=== PATIENT | male | born 1950 | race Caucasian/White ===

== ENCOUNTER → 2018-05-25 14:05 | Outpatient (CLI) | payer MEDICARE, MEDICAID, SELFPAY ==
--- NOTE | 2018-05-25 | IMM_PTH ---
PATIENT: CHAPINCITO IQBAL LOC: [facility] U#:[id number] AGE/SX: 74/M ROOM: RE05/25/[address]: Dr. Jose Torres MD : 1950 BED: DIS: SPEC #: [id number] RECD: 05/27/18 13:49 STATUS: JEAN REPatti #: [id number] LAURENT: 05/25/18 00:[address]: Jose Torres DEPT: IMMUNOHISTOCHEMISTRY RECD BY: Arminda Robert ENTERED: 05/27/18 13:53 SP TYPE: IMMUNO OTHR DR: Dr. Ravi Aguirre MD Tissues: Parotid gland, NOS Procedures: CK8 (initial) CK5-6 (add) CK7 (add) MACRO (add) Vimentin (add) PHYSICIAN & INSTITUTION [place] [phone] SPECIMEN INFORMATION: Tissue Source: Left parotid gland Clinical Info: D11.0, Z85.828 Specimen Number: [id number] CPT code: 73610, 06704 x4 METHODOLOGY: Deparaffinized sections of prefer/formalin-fixed tissue or PAP/DQ stained slides are incubated with monoclonal/polyclonal antibodies/oligonucleotide probes. Localization is made via biotin free immunoperoxidase method. Appropriate controls are performed and reacted as expected. Results on target cell population are indicated in the following table: RESULTS: ANTIBODY / CLONE RESULT CK8 ([id number]) positive CK7 (OV-TL12/30) negative Vimentin (V9) positive Macro (HAM-56) negative CK5-6 (D5 & 1684) positive These tests were developed and their performance characteristics determined by [facility]. They may not have been cleared or approved by the U.S. Food and Drug Administration. The FDA has determined that such clearance or approval is not necessary. INTERPRETATION: Left parotid gland, FNA: Consistent with benign mixed salivary gland tumor. AM:yani 05/28/18 Comment: Excision is recommended for definitive classification. Case has been reviewed in consultation with Dr. Mix who concurs with the above diagnosis. IDC:OLIVIER
--- NOTE | 2018-05-25 14:55 | FLU_PTH ---
PATIENT: CHAPINCITO IQBAL LOC: [facility] U#:[id number] AGE/SX: 74/M ROOM: RE05/25/[address]: Dr. Jose Torres MD : 1950 BED: DIS: SPEC #: [id number] RECD: 05/25/18 19:09 STATUS: JEAN LISA #: [id number] LAURENT: 05/25/18 14:[address]: Jose Torres DEPT: CYTOLOGY RECD BY: Javier Lowery ENTERED: 05/26/18 09:39 SP TYPE: Fluid OTHR DR: Dr. Ravi Aguirre MD Tissues: Parotid gland, NOS Procedures: Pap Stain (control) Special Stain Group II Surgery Specimen Level IV Cell Block Cytospin Fluid HEADER OPERATION: Not noted PRE-OP DIAGNOSIS: D11.0, Z85.828 TISSUE SUBMITTED: Left parotid gland fluid for cytology DIAGNOSIS CYTOLOGY Left parotid gland, fine needle aspiration (cytospin and cell block): Consistent with benign mixed tumor of salivary gland. AM:yani 05/27/18 COMMENT Spindle epithelial cells associated with stromal tissue is noted. The differential diagnosis includes an epithelial lesion with spindle cell morphology and benign mixed tumor of salivary gland. Excision of lesion is recommended for definite classification. Immunohistochemistry ([id number]) supports the above diagnosis. Case has been reviewed in consultation with Dr. Mix who concurs with the above diagnosis. IDC:SJ CYTOLOGY STUDY Slides are reviewed. CYTOLOGY GROSS Received is 25 ml of slightly pink cloudy fluid labeled with the patient's name and and designated per the requisition as left parotid gland. Submitted for cytology preparation including cell block. / 05/26/18 TC:? CPT: 00604, 95360
== END ==
PROVIDERS: Visit Provider Otolaryngology
DX: D11.0 Benign neoplasm of parotid gland (principal); Z85.828 Personal history of other malignant neoplasm of skin
CPT/HCPCS: 88108; 88305; 88313; 88341; 88342

== ENCOUNTER 2018-06-19 16:39 | Observation (INO) | payer MEDICARE, MEDICAID, SELFPAY ==
[2018-06-19] VITALS (13 sets, daily range): BP systolic 112–184; BP diastolic 64–99; PULSE 56–107; RESP 14–18; TEMP 36.3–36.9; O2SAT 88–100; BMI 26.8
[2018-06-19 12:17] LABS: Hematocrit 40.8 % (40-54); Hemoglobin 13.9 g/dl (13.0-16.5); Mean Corp Hgb Conc 34.1 g/gl (32-36); Mean Corpuscular Hgb 30.7 pg (27.0-32.0); Mean Corpuscular Volume 90.1 fL (80-94); Mean Platelet Vol. 9.3 fl (6.2-12.0); Platelet Count 194 K/mm3 (150-450); RBC Distribution Width CV 13.7 % (11.6-14.6); RBC Distribution Width SD 45.1 fl (35.1-43.9); Red Blood Count 4.53 M/mm3 (4.6-6.2); Scan Indicated on CBC? Y/N NO; White Blood Count 8.2 K/mm3 (4.4-11.0)
[2018-06-19 12:33] LABS: Anion Gap 7 (5-15); BUN 20 mg/dL (7-18); Chloride 108 mmol/L (98-107); Creatinine, Serum 1.33 mg/dL (0.70-1.30); EST Glomerular Filtration Rate 57 mL/min (>60); Est Glom Filt Rate - Afr Amer 69 mL/min (>60); Estimated Creatinine Clearance 60.08 ml/min; Glucose 104 mg/dL (74-106); Potassium 4.5 mmol/L (3.5-5.1); Sodium Level 141 mmol/L (136-145)
--- NOTE | 2018-06-19 15:46 | PAR_PTH ---
PATIENT: CHAPINCITO IQBAL LOC: [facility] U#:[id number] AGE/SX: 67/M ROOM: MS306 RE06/19/[address]: Dr. Jose Torres MD : 1950 BED: 1 DIS: 06/20/2018 SPEC #: [id number] RECD: 06/19/18 15:51 STATUS: JEAN REQ #: [id number] LAURENT: 06/19/18 15:[address]: Jose Torres DEPT: SURGICAL PATHOLOGY RECD BY: Bj Tyson ENTERED: 06/22/18 04:51 SP TYPE: PAROTID OTHR DR: Dr. Ravi Aguirre MD Tissues: Parotid gland, NOS Procedures: Frozen Section (charge) Frozen Section Add'l ([facility]) Surgery Specimen Level V HEADER OPERATION: Parotidectomy, lateral lobe with facial nerve preservation PRE-OP DIAGNOSIS: Neoplasm of parotid gland TISSUE SUBMITTED: Left lateral parotid gland sent at 1547, double stitch ? posterior, single stitch ? superior; history of distant basal cell excision from this site FROZEN SECTION DIAGNOSIS Lateral lobe left parotid: Basal cell carcinoma. OLIVIER:yani 06/19/18 MICROSCOPIC DIAGNOSIS Lateral lobe left parotid, parotidectomy: Basal cell carcinoma, completely excised. Salivary gland tissue, no pathologic diagnosis. Intraparotid and periparotid lymph node tissue with reactive changes, negative for metastatic carcinoma. See comment. OLIVIER:yani 06/22/18 COMMENT Skeletal muscle tissue is present in the specimen and not involved by the tumor. Please make reference to previous specimen ([id number]) left parotid gland, fine needle aspiration with diagnosis of consistent with benign mixed tumor of salivary gland. Case has been reviewed in consultation with Dr. Ardon who concurs with the above diagnosis. IDC:AM MICROSCOPIC DESCRIPTION Slides are reviewed. GROSS DESCRIPTION Received fresh for frozen section diagnosis labeled with the patient's name is a specimen designated lateral lobe left parotid. The specimen consists of a piece of skin with underlying tissue and glandular tissue weighing 24.5 gm. The overlying skin ellipse measures 8 x 2.5 cm. The underlying tissue including glandular tissue measures 8 x 4 x 3 cm. The skin surface shows a healed scar. The specimen is inked as follows: superior margin ? blue, inferior margin ? green, anterior margin ? yellow, posterior margin ? black. Serial sections show a rob, indurated nodule underneath the skin measuring 1 x 1 x 1 cm. No obvious mass is noted in the salivary gland tissue. A section of the nodule underneath the skin including anterior, posterior and deep margins is submitted for frozen section diagnosis in two cassettes. Tunnel Elastic Operator Zigzag sections are submitted in 12 cassettes as follows: 1 & 2 ? full thickness frozen section nodule including anterior, posterior and deep margins, 3 ? inferior margin, 4 ? superior margin, 5-8 ? entire nodule, 9 - sales representative rural [employer] section of the skin adjacent to the nodule, 10-12 - sales representative rural [employer] sections of salivary gland tissue with sales representative rural [employer] section of the glandular tissue. / OLIVIER:yani 06/19/18 TC:0 CPT: 30523, 58047, 53185
--- NOTE | 2018-06-19 16:29 | PCM.OPRPT ---
Problem List (1) Malignant neoplasm of major salivary glands Status: Acute Report of Operation Date of Procedure: 06/19/18 Pre-Operative Diagnosis: Benign lesion of parotid gland Post-Operative Diagnosis: Malignant basal cell carcinoma involving left parotid gland Surgery/Procedure Performed:: Excision of latearl lobe of left parotid gland with preservation of the facial nerve, nerve monitoring Description of Surgical Findings:: Tyler is a 67-year-old male who presents for evaluation of a firm mass of the left parotid underlying the previous excision of a basal cell carcinoma approximately 10 years prior. 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 Given the finding of a mass in his history however excision for definitive evaluation as well as treatment of the mass lesion was advised and he was eager to proceed. The risks, alternatives, potential benefits, and complications were discussed at length and any questions answered to the patient and/or caregiver's satisfaction. Witnessed informed consent was obtained in the office, and the patient and/or caregiver was agreeable to proceed. Procedure went as follows: The patient was identified in the preoperative holding in the left parotid lesion site marked in the preoperative holding in accordance with the patient's physical skin exam, office notes, and consent. The patient was then taught to the operating room where he is placed under general anesthesia and intubated. When appropriate anesthesia was obtained, the facial nerve monitoring electrodes then placed in accordance and [employer] directions over the left side of the face. The planned incision was then marked with a marking pen and injected with 1% lidocaine with 100,000 epinephrine for a total of 8 cc. After allowing for vasoconstriction, a standard parotidectomy incision was then made a 15 blade scalpel through the skin and subcutaneous tissues. The subcutaneous was then tissue was then dissected and the greater auricular nerve identified with the branches along the posterior aspect of the incisional flap preserved. Dissection was then carried down along the sternocleidomastoid freeing the parotid attachments to this muscle. Dissection was then carried out along the tragal cartilage and the main trunk of the facial nerve identified. Dissection was then carried out along the facial nerve branches working inferiorly to superiorly and freeing the mass from the parotid gland sacrificing a cuff of normal-appearing parotid tissue. The overlying skin scar from previous excision of his basal cell carcinoma and the palpable mass within the gland and its area of fixation to the overlying skin was then sharply resected. This was then sent for surgical specimen. Operative stimulation of the facial nerve branches confirmed preservation of function. THe skin was then widely undermined to reduce tension along the incision line. The wound bed was then copiously irrigated with saline solution and a #7 flat KJ drain placed and brought out through separate stab incision in the skin. The wound was then closed deeply with interrupted 3-0 Vicryl sutures followed by running 4-0 Prolene to the skin. Interrupted 5-0 Monocryl was use to close the skin anterior to the tragal incision. Bacitracin and ointment was then applied and the patient returned to anesthesia where he was revived and extubated without complication having tolerated the procedure well. Anesthesiologist: Jose Meeks Special Medications: none Specimen's removed: Basal cell carcinoma and lateral lobe of left parotid gland Drains: #7 flat KJ Estimated Blood Loss (mL): 25 mL Fluids Replaced: 2000 mL Grafts/Implants Used: none - Complications none - Admit VTE Documentation VTE Present on Admission: No VTE Mechan Device Prophylaxis: SCD's VTE Pharm Prophylaxis ordered?: No
[2018-06-19] MEDS: Bacitracin 500 UNITS/GM PACKET (16:30)
--- NOTE | 2018-06-19 16:38 | PCM.DC ---
- Discharge Diagnoses Current Active Problems: Current Active and Chronic Problems Malignant neoplasm of major salivary glands (Acute) You will use the following diet at home:: No restrictions Discharge Activity: Return to Normal Activity, May not drive while taking narcotic pain medications. Call your doctor if your incision/area has: Sudden Increased Bleeding, Increased Pain/ Swelling, Increased Redness Call your doctor if you observe: Fever of 101 or Higher, Uncontrolled pain Allergies/Adverse Reactions: Allergies No Known Allergies Allergy (Verified 06/12/18 09:06) PT WAS TESTED FOR AN UNKNOW ALLERGY THREE YRS AGO. Medications to take at Discharge Aspirin [Aspirin, Baby] 81 mg PO DAILY@0800 06/12/18 Glucosamine HCl 1,500 mg PO QODAY 06/12/18 Isosorbide Mononitrate [Imdur] 30 mg PO DAILY 06/12/18 Loratadine [Claritin] 10 mg PO DAILY 06/12/18 Metoprolol Succinate [Toprol Xl] 25 mg PO DAILY 06/12/18 Nitroglycerin 0.3 mg SL PRN PRN 06/12/18 Rabeprazole Sodium [Aciphex] 20 mg PO DAILY 06/12/18 Rosuvastatin Calcium [Crestor] 40 mg PO QHS 06/12/18 mg Trisilicate/Alh/Nahco3/Aa [Gaviscon 80-14.2 mg Tab Chew] 1 tab PO DAILY 06/12/18 Primary Care Physician: Ravi Aguirre MD [Primary Care Provider] - Test Results: Test results from this visit will be discussed in further detail at your follow-up appointment, if applicable. Please Follow Up With: Jose Torres MD When: 10 days Proposed Discharge Date: 06/20/18
[2018-06-19] MEDS: Enalaprilat 1.25 MG/ML Vial 0.625 MG IV (17:56)
[2018-06-19] MEDS: Ibuprofen 400 MG Tablet PO ×2 (19:05→23:35)
[2018-06-20] MEDS: Ibuprofen 400 MG Tablet PO ×2 (05:25→11:07)
[2018-06-20 05:36] VITALS: BP 135/69; PULSE 64; RESP 18; TEMP 36.7; O2SAT 95
[2018-06-20] MEDS: Aspirin 81 MG TAB.CHEW PO (09:29)
[2018-06-20] MEDS: Loratadine 10 MG Tablet PO (09:29)
[2018-06-20 09:30] VITALS: PULSE 62
[2018-06-20] MEDS: Isosorbide Mononitrate 30 MG Tablet PO (09:30)
[2018-06-20] MEDS: Metoprolol(XL)Succ 25 MG Tablet PO (09:30)
--- NOTE | 2018-06-20 09:47 | PCM.PN.SRG ---
Patient Problems: Active and Suspected Problems Malignant neoplasm of major salivary glands (Acute) Subjective: Feeling well, no pain or facial weakness. Objective: Well appearing, facial incision intact without swelling or redness. Drain output 10 mL last shift. - Physical Exam General: Alert, Oriented x3, Cooperative, No apparent distress HEENT: Atraumatic, PERRLA, EOMI, Normocephalic Oral: Moist Mucosa Neck: Supple Cardiovascular: Regular rate, Regular Rhythm Psych/Mental Status: Alert and oriented to time, place, person, mood and affect Vital Signs Temp Pulse Resp BP Pulse Ox 98.0 F 62 18 135/69 H 95 06/20/18 05:36 06/20/18 09:30 06/20/18 05:36 06/20/18 05:36 06/20/18 05:36 Oxygen Flow Rate (L/min) 2 Oxygen Delivery Method Room Air Weight: 92.1 kg Body Mass Index (BMI) 26.8 Intake and Output for Last 24 Hours 06/18/18 06/19/18 06/20/18 23:59 23:59 23:59 Intake Total 3543 / 3543 675 / 675 Output Total 160 / 160 535 / 535 Balance 3383 / 3383 140 / 140 Laboratory Tests Past 24 Hrs 06/19/18 06/19/18 12:00 12:00 WBC 8.2 RBC 4.53 L Hgb 13.9 Hct 40.8 MCV 90.1 MCH 30.7 MCHC 34.1 RDW 13.7 RDW Differential 45.1 H Plt Count 194 MPV 9.3 Sodium 141 Potassium 4.5 Chloride 108 H Carbon Dioxide 26.0 Anion Gap 7 BUN 20 H Creatinine 1.33 H Estim Creat Clear Calc 60.08 Est GFR (MDRD) Af Amer 69 Est GFR (MDRD) Non-Af 57 L BUN/Creatinine Ratio 15.0 Glucose 104 Calcium 9.0 Medical Necessity - Tobacco Use Smoking Status: Current every day smoker Assessment/Plan All Active Problems Malignant neoplasm of major salivary glands (Acute) Dong well s/p left parotidectomy. Drain removed at bedside with discharge today. Follow-up next week for suture removal.
[2018-06-20 11:15] VITALS: BP 119/56; PULSE 65; RESP 18; TEMP 36.8; O2SAT 94
== END 2018-06-20 11:20 | disposition home or self-care (01) ==
LOC: MS3 06-20 04:37 → SDC 06-22 06:56
PROVIDERS: Anesthesiology; Admitting Provider Otolaryngology; Visit Provider Otolaryngology
PROC: (CPT 42410; principal; 2018-06-19 13:05)
DX: C07 Malignant neoplasm of parotid gland (principal); K21.9 Gastro-esophageal reflux disease without esophagitis; Z85.828 Personal history of other malignant neoplasm of skin; Z79.899 Other long term (current) drug therapy; Z79.82 Long term (current) use of aspirin; I10 Essential (primary) hypertension; I49.1 Atrial premature depolarization; F17.200 Nicotine dependence, unspecified, uncomplicated; J44.9 Chronic obstructive pulmonary disease, unspecified; E78.5 Hyperlipidemia, unspecified
CPT/HCPCS: 42415; 80048; 85027; 88307; 88331; 88332; 99218; J7120; G0378; G0379; J2405; J3490

== ENCOUNTER → 2018-11-23 13:30 | Outpatient (CLI) | payer MEDICARE, MEDICAID, SELFPAY ==
[2018-06-19 12:13] VITALS: BMI 26.8
--- NOTE | 2018-11-23 | IMM_PTH ---
PATIENT: CHAPINCITO IQBAL LOC: [facility] U#:[id number] AGE/SX: 74/M ROOM: RE11/23/[address]: Dr. Jose Torres MD : 1950 BED: DIS: SPEC #: [id number] RECD: 11/25/18 13:08 STATUS: JEAN LISA #: [id number] LAURENT: 11/23/18 00:[address]: Jose Torres DEPT: IMMUNOHISTOCHEMISTRY RECD BY: Arminda Robert ENTERED: 11/25/18 13:09 SP TYPE: IMMUNO OTHR DR: Dr. Ravi Aguirre MD Tissues: C - Skin of chest Procedures: [place]-1 (initial) SMA (add) DESMIN (add) Vimentin (add) S-100 (add) PHYSICIAN & INSTITUTION [place] [phone] SPECIMEN INFORMATION: Tissue Source: C - Upper chest Clinical Info: Benign neoplasm of skin, BCCA history Specimen Number: [id number] CPT code: 13429, 96999 x4 METHODOLOGY: Deparaffinized sections of prefer/formalin-fixed tissue or PAP/DQ stained slides are incubated with monoclonal/polyclonal antibodies/oligonucleotide probes. Localization is made via biotin free immunoperoxidase method. Appropriate controls are performed and reacted as expected. Results on target cell population are indicated in the following table: RESULTS: ANTIBODY / CLONE RESULT Block C S-100 (4C4.9) positive MART-1 (A-103) negative Vimentin (V9) positive Actin (1A4) negative Desmin (CE-R-11) negative These tests were developed and their performance characteristics determined by [facility]. They may not have been cleared or approved by the U.S. Food and Drug Administration. The FDA has determined that such clearance or approval is not necessary. INTERPRETATION: C. Upper chest lesion, excisional biopsy: Consistent with neurofibroma. SJ:yani 11/25/18
--- NOTE | 2018-11-23 13:30 | LES_PTH ---
PATIENT: CHAPINCITO IQBAL LOC: [facility] U#:[id number] AGE/SX: 74/M ROOM: RE11/23/[address]: Dr. Jose Torres MD : 1950 BED: DIS: SPEC #: [id number] RECD: 11/23/18 18:00 STATUS: JEAN LISA #: [id number] LAURENT: 11/23/18 13:[address]: Jose Torres DEPT: SURGICAL PATHOLOGY RECD BY: Jeremiah Purdy ENTERED: 11/24/18 10:59 SP TYPE: Lesion OTHR DR: Dr. Ravi Aguirre MD Tissues: A - Skin of neck, NOS B - Skin of neck, NOS C - Skin of chest Procedures: Surgery Specimen Level IV HEADER OPERATION: Excision of lesion PRE-OP DIAGNOSIS: Benign neoplasm of skin D23.4; history of BCCA TISSUE SUBMITTED: A - Front lower neck, B - Left neck, C - Upper chest MICROSCOPIC DIAGNOSIS A. Frontal lower neck lesion, excisional biopsy: Inflamed benign verrucous keratosis. Negative for malignancy. B. Left neck lesion, biopsy: Benign verrucous keratosis. Solar elastosis. Negative for malignancy. C. Upper chest lesion, excisional biopsy: Neurofibroma. See comment. SJ:yani 11/25/18 COMMENT C. Immunohistochemistry ([id number]) supports the above diagnosis. Please make reference to previous specimens ([id number]), left parotid gland, fine needle aspiration with diagnosis of consistent with benign mixed tumor of salivary gland and (K12-4389) lateral lobe left parotid, parotidectomy with diagnosis of basal cell carcinoma, completely excised. MICROSCOPIC DESCRIPTION Slides are reviewed. GROSS DESCRIPTION A - Received in fixative is one container labeled with the patient's name and designated front lower neck. The specimen consists of a punch biopsy of rob-white skin measuring 0.5 cm in diameter and 0.5 cm in length. The specimen is inked and submitted entirely in one cassette. It will be bisected at the time of embedding. B - Received in fixative is one container labeled with the patient's name and designated left neck. The specimen consists of a piece of rob-white skin measuring 0.2 x 0.2 x 0.1 cm. The entire specimen is submitted in one cassette. C - Received in fixative is one container labeled with the patient's name and designated upper check. The specimen consists of a piece of rob-white skin measuring 1 x 0.7 cm and up to 0.4 cm in thickness. The specimen is inked, serially sectioned and submitted entirely in one cassette. / OLIVIER:yani 11/24/18 TC:1 CPT: 49258 x3
== END ==
PROVIDERS: Referring Provider Otolaryngology; Visit Provider Otolaryngology
DX: D23.4 Other benign neoplasm of skin of scalp and neck (principal)
CPT/HCPCS: 88305; 88341; 88342

== ENCOUNTER → 2023-09-09 | Outpatient (CLI) | payer MEDICARE, MEDICAID, SELFPAY ==
--- NOTE | 2023-09-10 08:00 | PFT ---
INTRODUCTION: The patient is a 72-year-old male who presents for pulmonary function studies secondary to a diagnosis of dyspnea. Respiratory therapy reported good patient effort. Bronchodilators were used during testing. INTERPRETATION: Forced expiration spirometry demonstrates the presence of a mild large airways obstructive ventilatory defect. There was no significant response to aerosolized bronchodilators. Spirograms are of good quality but do not plateau indicating slow emptying of the lungs. Body plethysmography was performed and revealed an elevated RV to 163% of predicted, indicative of underlying air trapping. Diffusing capacity by single breath CO was reduced to 47% of predicted. IMPRESSION: Irreversible mild large airways obstructive ventilatory defect with associated air trapping and disproportionate reduction in diffusion capacity.
== END | disposition home or self-care (01) ==
LOC: PSN 12:23
PROVIDERS: PCP Internal Medicine Infectious Disease; Referring Provider Internal Medicine Critical Care Medicine; Visit Provider Internal Medicine Critical Care Medicine
DX: R06.00 Dyspnea, unspecified (principal)
CPT/HCPCS: 94060; 94726; 94729

== ENCOUNTER → 2023-09-11 | Outpatient (CLI) | payer MEDICARE, MEDICAID, SELFPAY ==
[2023-09-11 11:15] VITALS: PULSE 102; PULSE 51; PULSE 68; PULSE 91; PULSE 98; PULSE 99; O2SAT 93; O2SAT 94; O2SAT 95; O2SAT 97
--- NOTE | 2023-09-12 10:32 | PCM.PSN.6M ---
PSN 6 Minute Walk Test 6 Minute Walk Test 6 Minute Walk Test: 6 Minute Walk Test PSN:6-Minute Walk Test Start: 09/11/23 11:32 Freq: Status: Active Protocol: RESP.6MINW Document 09/11/23 11:15 EW (Rec: 09/11/23 11:37 EW Desktop) 6 Minute Walk Test Date Performed 09/11/23 Time Performed 11:15 Height 6 ft 1 in Weight: 200 lb Weight in Pounds 200.[address]: Stevie Orozco Assistive device used: None Pre-test Oxygen Delivery Method Room Air Pulse Ox 97 Pulse Rate (60-100) 68 Dyspnea Mitchell Scale (0-10) 0 Exertion Mitchell Scale (6-20) 6 1st minute Oxygen Delivery Method Room Air Pulse Ox 95 Pulse Rate (60-100) 98 2nd minute Oxygen Delivery Method Room Air Pulse Ox 93 Pulse Rate (60-100) 102 H 3rd minute Oxygen Delivery Method Room Air Pulse Ox 94 Pulse Rate (60-100) 99 4th minute Oxygen Delivery Method Room Air Pulse Ox 94 Pulse Rate (60-100) 99 5th minute Oxygen Delivery Method Room Air Pulse Ox 95 Pulse Rate (60-100) 99 6th minute Oxygen Delivery Method Room Air Pulse Ox 95 Pulse Rate (60-100) 91 Post-test Oxygen Delivery Method Room Air Pulse Ox 97 Pulse Rate (60-100) 51 L Dyspnea Mitchell Scale (0-10) 0.5 Exertion Mitchell Scale (6-20) 8 Full Laps Walked 22 Partial Lap, Number of Tiles Walked 25 Total Distance Walked (ft) 1323 Interpretation Interpretation: The patient ambulated 1323 feet over the course of 6 minutes beginning on room air without assistive devices. Pretesting oxygen saturation was noted to be 97% on room air. With ambulation, the miguel a oxygen saturation was 93%. There was no significant exertional oxygen desaturation. Recommendations Recommendations: There is no indication for the use of supplemental oxygen at this time.
== END | disposition home or self-care (01) ==
PROVIDERS: PCP Internal Medicine Infectious Disease; Referring Provider Internal Medicine Critical Care Medicine; Visit Provider Internal Medicine Critical Care Medicine
DX: R06.00 Dyspnea, unspecified (principal)
CPT/HCPCS: 94618

== ENCOUNTER 2023-09-24 06:36 | Day surgery (SDC) | payer MEDICARE, MEDICAID, SELFPAY ==
--- NOTE | 2023-09-23 | EGD_PTH ---
PATIENT: CHAPINCITO IQBAL LOC: EN U#:[id number] AGE/SX: 72/M ROOM: RE09/24/[address]: Dr. Phil Goyal DO : 1950 BED: DIS: 09/24/2023 SPEC #: [id number] RECD: 09/24/23 11:41 STATUS: JEAN LISA #: [id number] LAURENT: 09/23/23 00:[address]: Phil Goyal DEPT: SURGICAL PATHOLOGY RECD BY: Daya Waller ENTERED: 09/24/23 11:41 SP TYPE: EGD BIOPSY BRENDA DR: Dr. Roxy Vanessa MD Tissues: Duodenum, NOS Procedures: Surgery Specimen Level IV HEADER OPERATION: EGD with biopsy PRE-OP DIAGNOSIS: Abdominal bloating, history duodenal ulcer TISSUE SUBMITTED: Duodenum biopsy MICROSCOPIC DIAGNOSIS Duodenum, biopsy: Suggestive of Zay's gland hyperplasia. AM:yani 09/25/2023 MICROSCOPIC DESCRIPTION Slides are reviewed. GROSS DESCRIPTION Received in fixative is one container labeled with the patient's name and designated duodenum biopsy. The specimen consists of multiple irregular fragments of light rob soft tissue that in aggregate measure 1.0 x 0.3 x 0.1 cm. The specimen is totally submitted in one cassette. / AM:yani 09/24/2023 TC:5 CPT: 38014
[2023-09-24] VITALS (7 sets, daily range): BP systolic 78–108; BP diastolic 44–93; PULSE 70–78; RESP 16–20; TEMP 36.8–37.2; O2SAT 94–97; BMI 26.7
[2023-09-24] MEDS: Lactated Ringers 1,000 ML 15 ML IV (07:07)
--- NOTE | 2023-09-24 07:46 | PCM.HP.BLA ---
History and Physical Date of Admission: 09/24/23 CHAPINCITO IQBAL, is a 72 M who presents to the office today for follow up. Prior workup:?EGD and colonoscopy [facility]?reporting duodenal ulcers ? Colonoscopy ?diverticulosis?Start protonix 40mg BID? *BGI established 11.16.21 for management of upper abdominal pain.?EGD and colonoscopy?not performed. No follow up? ROS Const Constitutional: No fatigue ENT ENT: Positive for difficulty swallowing Gastro GI: Positive for bloating, heartburn, difficulty swallowing and excessive flatus; No abdominal pain, belching, change in bowel habits, change in stool character, coffee ground emesis, constipation, cramping, diarrhea, feeling full early, incontinent of stools, Vomiting blood/hematemesis, Blood in stool, loose stools, Black,tarry stools, nausea/dyspepsia, pain with swallowing, vomiting or other Musc Musculoskeletal: Positive for joint pain, muscle cramps, stiffness and restless legs Skin Skin: No yellowing of the eye or itchy eyes Neuro Neurology: Positive for restless legs Psych Psychiatric: No anxiety and No depression Endo Endocrine: No fatigue Aller/Imm Allergy/Immunologic: No itchy eyes Kwame/Lymp Hematologic/Lymphatic: No easy bleeding or easy bruising Exam Const General: cooperative and comfortable Nutritional Appearance: average body habitus and well nourished [facility] Head: normal to inspection Ears: hearing grossly normal bilaterally Nose: external nose normal Face and sinus: normal facial exam Mouth: oral mucosae normal Throat: posterior oropharynx normal Eyes General: appearance normal, both eyes and all related structures Neck Neck: normal visual inspection Chest Chest palpation & inspection: normal inspection of the chest and normal palpation of entire chest wall Resp Effort & Inspection: normal respiratory effort Auscultation: Bilateral: Clear to Auscultation Cardio Palpation: normal PMI Rate: regular rate Rhythm: regular rhythm GI Inspection: normal to inspection Auscultation: normal bowel sounds Percussion: normal to percussion Palpation: no hepatosplenomegaly Skin General: no rashes or lesions noted Neuro General: patient alert Extrem General: normal to inspection Psych Affect: normal affect Quality Reporting Tobacco Screening ([facility] 138) Smoking Status: Current every day smoker Assessment and Plan Assessment and Plan (1) Abdominal bloating: Status: Acute Plan: We will perform an upper endoscopy to see if his abdominal pain and bloating is secondary to persistent duodenal ulcer, gastritis or atypical reflux disease. Also different diagnosis would be small bacterial overgrowth. We will have further evaluation after he undergoes upper endoscopy. At this time I will not stop his PPI therapy. (2) Diverticula of colon: Status: Acute Plan: Patient seems to be eating a very good diet. The only other thing I would recommend prior to him undergoing colonoscopy would be vitamin D, fiber supplements and a probiotic that would preferably prevent diverticulitis in the form of VSL #3 (3) History of duodenal ulcer: Status: Acute Plan: We will evaluate his upper GI tract to see if he still has a persistent duodenal ulcer will also check him for H. pylori. I have examined the patient and the H&P has been reviewed. There are no clinical changes since date of exam.
--- NOTE | 2023-09-24 08:02 | OP.EGD_ITS ---
Patient Name: Tyler Olivares Procedure Date: 09/24/2023 7:44 AM Date of : 1950 Age: 72 Procedure: Upper GI endoscopy Indications: Epigastric abdominal pain, Functional Dyspepsia, Failure to respond to medical treatment Providers: Phil Goyal DO Medicines: Monitored Anesthesia Care Patient Profile: This is a 72 year old male. Refer to note in patient chart for documentation of history and physical. Patient has symptoms of chronic abdominal cramping, chronic abdominal distention, chronic epigastric abdominal pain and chronic dyspepsia. Complications: No immediate complications. Procedure: Pre-Anesthesia Assessment: - Prior to the procedure, a History and Physical was performed, and patient medications and allergies were reviewed. The patient is competent. The risks and benefits of the procedure and the sedation options and risks were discussed with the patient. All questions were answered and informed consent was obtained. Patient identification and proposed procedure were verified by the physician in the pre-procedure area. Mental Status Examination: alert and oriented. Airway Examination: normal oropharyngeal airway and neck mobility. Respiratory Examination: clear to auscultation. CV Examination: normal. Prophylactic Antibiotics: The patient does not require prophylactic antibiotics. Prior Anticoagulants: The patient has taken no anticoagulant or antiplatelet agents. ASA Grade Assessment: II - A patient with mild systemic disease. After reviewing the risks and benefits, the patient was deemed in satisfactory condition to undergo the procedure. The anesthesia plan was to use monitored anesthesia care (MAC). Immediately prior to administration of medications, the patient was re-assessed for adequacy to receive sedatives. The heart rate, respiratory rate, oxygen saturations, blood pressure, adequacy of pulmonary ventilation, and response to care were monitored throughout the procedure. The physical status of the patient was re-assessed after the procedure. After obtaining informed consent, the endoscope was passed under direct vision. Throughout the procedure, the patient's blood pressure, pulse, and oxygen saturations were monitored continuously. The Endoscope was introduced through the mouth, and advanced to the second part of duodenum. The upper GI endoscopy was accomplished without difficulty. The patient tolerated the procedure well. Scope In: 7:52:07 AM Scope Out: 7:55:44 AM Total Procedure Duration Time 0 hours 3 minutes 37 seconds Findings: Abnormal motility was noted in the lower third of the esophagus. The cricopharyngeus was normal. There are extra peristaltic waves in the esophageal body. The distal esophagus/lower esophageal sphincter is spastic, but gives up passage to the endoscope. Secondary peristaltic waves are noted. A hiatal hernia was present. The exam of the stomach was otherwise normal. One non-bleeding linear duodenal ulcer with no stigmata of bleeding was found in the duodenal bulb. The lesion was 6 mm in largest dimension. Biopsies were taken with a cold forceps for histology. Verification of patient identification for the specimen was done. Estimated blood loss was minimal. Localized mild inflammation characterized by erosions and erythema was found in the duodenal bulb. Biopsies were taken with a cold forceps for histology. Verification of patient identification for the specimen was done. Estimated blood loss was minimal. Impression: - Abnormal esophageal motility, suspicious for achalasia. - Hiatal hernia. - Non-bleeding duodenal ulcer with no stigmata of bleeding. Biopsied. - Duodenitis. Biopsied. Recommendation: - Discharge patient to home. - Resume previous diet. - Continue present medications. - Await pathology results. Procedure Code(s): --- Professional --- 24542, Esophagogastroduodenoscopy, flexible, transoral; with biopsy, single or multiple CPT copyright 2021 [employer] [employer]. All rights reserved. The codes documented in this report are preliminary and upon lay out helper review may be revised to meet current compliance requirements. Phil Goyal DO 09/24/2023 8:02:04 AM This report has been signed electronically. Number of Addenda: 0 Note Initiated On: 09/24/2023 7:44 AM
--- NOTE | 2023-09-24 08:02 | OP.CCLET_ITS ---
09/24/2023 Roxy Vanessa [address] [id number] Re : Upper GI endoscopy procedure for Tyler Elise Dear Dr. Vanessa This procedure was performed on Sunday, September 24, 2023. My impressions and recommendations are as follows: Impressions : - Abnormal esophageal motility, suspicious for achalasia. - Hiatal hernia. - Non-bleeding duodenal ulcer with no stigmata of bleeding. Biopsied. - Duodenitis. Biopsied. Recommendations : - Discharge patient to home. - Resume previous diet. - Continue present medications. - Await pathology results. My findings are described in the full procedure note, which is enclosed. If I can be of further assistance, please feel free to contact me at . Sincerely, Phil Goyal, 09/24/2023 8:02:04 AM This report has been signed electronically.
== END 2023-09-24 08:53 | disposition home or self-care (01) ==
LOC: EN 06:37 → AC 06:38
PROVIDERS: PCP Internal Medicine Infectious Disease; Referring Provider Internal Medicine Infectious Disease; Visit Provider Internal Medicine Gastroenterology
PROC: 0DJ08ZZ Inspection of Upper Intestinal Tract, Via Natural or Artificial Opening Endoscopic (ICD-10-PCS; CPT 43235; principal; 2023-09-24 07:55)
DX: K26.9 Duodenal ulcer, unspecified as acute or chronic, without hemorrhage or perforation (principal); K44.9 Diaphragmatic hernia without obstruction or gangrene; K29.80 Duodenitis without bleeding; F17.200 Nicotine dependence, unspecified, uncomplicated; K57.30 Diverticulosis of large intestine without perforation or abscess without bleeding; Z87.19 Personal history of other diseases of the digestive system; Z79.899 Other long term (current) drug therapy; I10 Essential (primary) hypertension
CPT/HCPCS: 43239; 88305; J7120; J2405

== ENCOUNTER 2023-10-16 09:16 | Day surgery (SDC) | payer MEDICARE, MEDICAID, SELFPAY ==
[2023-10-16] MEDS: Lidocaine Jelly 2% 20 ML Syringe (URO-JET) 1 APPLIC (09:40)
[2023-10-16 09:48] VITALS: BP 143/59; PULSE 36; RESP 18; TEMP 36.6; O2SAT 97
== END 2023-10-16 23:59 | disposition home or self-care (01) ==
LOC: EN 09:18
PROVIDERS: PCP Internal Medicine Infectious Disease; Referring Provider Internal Medicine Infectious Disease; Visit Provider Internal Medicine Gastroenterology
PROC: F00ZJWZ Instrumental Swallowing and Oral Function Assessment using Swallowing Equipment (ICD-10-PCS; CPT 43235; principal; 2023-10-16 09:25)
DX: K22.2 Esophageal obstruction (principal)
CPT/HCPCS: 91010

== ENCOUNTER → 2024-03-31 | Outpatient (CLI) | payer MEDICARE, MEDICAID, SELFPAY | END | disposition home or self-care (01) | LOC: SL 12:30 | PROVIDERS: PCP Internal Medicine Infectious Disease; Referring Provider Nurse Practitioner Acute Care; Visit Provider Nurse Practitioner Acute Care | DX: R09.02 Hypoxemia (principal) | CPT/HCPCS: 94762 ==

== ENCOUNTER 2024-04-14 06:52 | Day surgery (SDC) | payer MEDICARE, MEDICAID, SELFPAY ==
[2024-04-14] VITALS (7 sets, daily range): BP systolic 82–129; BP diastolic 52–78; PULSE 56–72; RESP 14–18; TEMP 36.1–36.3; O2SAT 93–96; BMI 27.3
[2024-04-14] MEDS: Lactated Ringers 1,000 ML 15 ML IV (07:26)
--- NOTE | 2024-04-14 07:42 | EKG12_ITS ---
Test Reason : preop Blood Pressure : / mmHG Vent. Rate : 067 BPM Atrial Rate : 067 BPM P-R Int : 166 ms QRS Dur : 098 ms QT Int : 388 ms P-R-T Axes : 062 032 048 degrees QTc Int : 409 ms Sinus rhythm with Premature atrial complexes in a pattern of bigeminy Otherwise normal ECG When compared with ECG of 15-APR-2010 10:49, Premature atrial complexes are now Present Confirmed by SERGEY JORGE, BENJIE ([id number]), purchasing expeditor DAWIT GARCÍA ([id number]) on 04/15/2024 9:52:46 AM Referred By: Roxy Vanessa Confirmed By:BENJIE RINCON MD
--- NOTE | 2024-04-14 08:00 | IMM_PTH ---
PATIENT: CHAPINCITO IQBAL LOC: [facility] U#:[id number] AGE/SX: 73/M ROOM: RE04/14/[address]: Dr. Phil Goyal DO : 1950 BED: DIS: 04/14/2024 SPEC #: [id number] RECD: 04/15/24 08:11 STATUS: JEAN LISA #: [id number] LAURENT: 04/14/24 08:[address]: Phil Goyal DEPT: IMMUNOHISTOCHEMISTRY RECD BY: Juan Luis Herrera ENTERED: 04/15/24 08:11 SP TYPE: IMMUNO OTHR DR: Dr. Roxy Vanessa MD Tissues: B - Gastric mucous membrane C - Esophagus, NOS Procedures: H Pylori (initial) P53 (initial) KI-67 (add) PHYSICIAN & INSTITUTION [place] [phone] SPECIMEN INFORMATION: Tissue Source: B. Gastric body biopsy Clinical Info: Abdominal bloating, diverticula of colon, history of duodenal ulcer, colon cancer screening Specimen Number: [id number] CPT code: 17056s4,57449 METHODOLOGY: Deparaffinized sections of prefer/formalin-fixed tissue or PAP/DQ stained slides are incubated with monoclonal/polyclonal antibodies/oligonucleotide probes. Localization is made via biotin free immunoperoxidase method. Appropriate controls are performed and reacted as expected. Results on target cell population are indicated in the following table: RESULTS: ANTIBODY / CLONE RESULT Block B H Pylori (polyclonal) negative Block C P53 (DO-7) negative (null pattern) Ki-67 (30-9) positive, very low These tests were developed and their performance characteristics determined by [facility]. They may not have been cleared or approved by the U.S. Food and Drug Administration. The FDA has determined that such clearance or approval is not necessary. The above immunohistochemical/dualISH markers are ordered and reviewed by the Pathologist. INTERPRETATION: B. Gastric body, biopsy: Negative for Helicobacter pylori organisms. C. Distal esophagus, biopsy: Negative for dysplasia. OLIVIER/ 04/16/2024
--- NOTE | 2024-04-14 08:00 | EGD_PTH ---
PATIENT: CHAPINCITO IQBAL LOC: [facility] U#:[id number] AGE/SX: 73/M ROOM: RE04/14/[address]: Dr. Phil Goyal DO : 1950 BED: DIS: 04/14/2024 SPEC #: [id number] RECD: 04/14/24 10:00 STATUS: JEAN LISA #: [id number] LAURENT: 04/14/24 08:[address]: Phil Goyal DEPT: SURGICAL PATHOLOGY RECD BY: Nyla Christie ENTERED: 04/14/24 12:36 SP TYPE: EGD BIOPSY OT DR: Dr. Roxy Vanessa MD Tissues: A - Duodenum, NOS B - Gastric mucous membrane C - Esophagus, NOS Procedures: Special Stain Group I Surgery Specimen Level IV Alcian Blue/PAS (control) HEADER OPERATION: EGD with biopsy PRE-OP DIAGNOSIS: Abdominal bloating, diverticula of colon, history of duodenal cancer, colon cancer screening TISSUE SUBMITTED: A- Duodenum biopsy, B- Gastric body, C- Distal esophagus MICROSCOPIC DIAGNOSIS A. Duodenum, biopsy: Fragments of duodenal mucosa with mild Zay gland hyperplasia. B. Gastric body, biopsy: Mild gastritis. See microscopic description and comment. C. Distal esophagus, biopsy: Fragments of gastroesophageal mucosa with focal intestinal metaplasia (goblet cell metaplasia), consistent with Pop's esophagus. Focal mild chronic inflammation and minimal acute inflammation. Negative for dysplasia. See comment. OLIVIER/ 04/15/2024 COMMENT B. The results of immunohistochemistry for Helicobacter pylori will be reported separately ([id number]). C. Immunohistochemistry ([id number]) for P53 and Ki-67 will be performed and results will be reported separately. Alcian blue/PAS stain with matched control is used in the evaluation of the specimen. MICROSCOPIC DESCRIPTION Slides are reviewed. B. The specimen shows fragments of gastric mucosa with chronic inflammatory cell infiltrates in the lamina propria consisting of lymphocytes and plasma cells, consistent with mild chronic gastritis. GROSS DESCRIPTION A. Received in fixative is one container labeled with the patient's name and designated Duodenum biopsy. The specimen consists of multiple irregular fragments of light rob soft tissue that in aggregate measure 1.0 x 0.4 x 0.1 cm. The specimen is totally submitted in one cassette. B. Received in fixative is one container labeled with the patient's name and designated Gastric body biopsy. The specimen consists of two irregular fragments of light rob soft tissue that in aggregate measure 0.6 x 0.5 x 0.1 cm. The specimen is totally submitted in one cassette. C. Received in fixative is one container labeled with the patient's name and designated Distal esophagus. The specimen consists of two irregular fragments of light rob soft tissue that in aggregate measure 0.8 x 0.4 x 0.1 cm. The specimen is totally submitted in one cassette. OLIVIER chen 04/14/2024 TC:3 CPT:38473u8,49451
--- NOTE | 2024-04-14 08:36 | PCM.HP.BLA ---
History and Physical Date of Admission: 04/14/24 r/o achalasia Details: CHAPINCITO IQBAL, is a 73 M who presents to the office today for follow up. EGD and colonoscopy [facility] reporting duodenal ulcers Colonoscopy ?diverticulosis Start protonix 40mg BID *BGI established 11.16.21 for management of upper abdominal pain. EGD and colonoscopy not performed. No follow up .15 - Abnormal esophageal motility, suspicious for achalasia. - Hiatal hernia. - Non-bleeding duodenal ulcer with no stigmata of bleeding. Biopsied. - Duodenitis. Biopsied. OV 02.23.24 pt reports that he is feeling well since last visit. Pt states that he is taking Baclofen and Pantoprazole. ROS Const Constitutional: No fatigue ENT ENT: No difficulty swallowing Gastro GI: No abdominal pain, belching, bloating, change in bowel habits, change in stool character, coffee ground emesis, constipation, cramping, diarrhea, heartburn, difficulty swallowing, feeling full early, excessive flatus, incontinent of stools, Vomiting blood/hematemesis, Blood in stool, loose stools, Black,tarry stools, nausea/dyspepsia, pain with swallowing, vomiting or other Musc Musculoskeletal: No joint pain, muscle cramps, stiffness or restless legs Skin Skin: No yellowing of the eye or itchy eyes Neuro Neurology: No restless legs Psych Psychiatric: No anxiety and No depression Endo Endocrine: No fatigue Aller/Imm Allergy/Immunologic: No itchy eyes Kwame/Lymp Hematologic/Lymphatic: No easy bleeding or easy bruising Exam Const General: cooperative and comfortable Nutritional Appearance: average body habitus and well nourished [facility] Head: normal to inspection Ears: hearing grossly normal bilaterally Nose: external nose normal Face and sinus: normal facial exam Mouth: oral mucosae normal Throat: posterior oropharynx normal Eyes General: appearance normal, both eyes and all related structures Neck Neck: normal visual inspection Chest Chest palpation & inspection: normal inspection of the chest and normal palpation of entire chest wall Resp Effort & Inspection: normal respiratory effort Auscultation: Bilateral: Clear to Auscultation Cardio Palpation: normal PMI Rate: regular rate Rhythm: regular rhythm GI Inspection: normal to inspection Auscultation: normal bowel sounds Percussion: normal to percussion Palpation: no hepatosplenomegaly Skin General: no rashes or lesions noted Neuro General: patient alert Extrem General: normal to inspection Psych Affect: normal affect Quality Reporting Tobacco Screening ([facility] 138) Smoking Status: Current every day smoker Assessment and Plan Assessment and Plan (1) Abdominal bloating: Status: Acute Plan: We will perform an upper endoscopy to see if his abdominal pain and bloating is secondary to persistent duodenal ulcer, gastritis or atypical reflux disease. Also different diagnosis would be small bacterial overgrowth. We will have further evaluation after he undergoes upper endoscopy. At this time I will not stop his PPI therapy. (2) Diverticula of colon: Status: Acute Plan: Patient seems to be eating a very good diet. The only other thing I would recommend prior to him undergoing colonoscopy would be vitamin D, fiber supplements and a probiotic that would preferably prevent diverticulitis in the form of VSL #3 (3) History of duodenal ulcer: Status: Acute Plan: We will evaluate his upper GI tract to see if he still has a persistent duodenal ulcer will also check him for H. pylori. (4) Colon cancer screening: Status: Acute Plan: He does not want to undergo colonoscopy at this time. I told him that we can do a fit test and a Cologuard test. He typically is not in the patient population for this test. However I would rather he do something and nothing. I think the sensitivity and specificity of the test is decreased in a 73-year-old. However I would rather he get something done and if the test is normal then he should have the test on annual basis. Orders: Orders Stool Occult Blood iFOB Today K57.30 - Diverticulosis of large intestine without perforation or abscess without bleeding, R14.0 - Abdominal distension (gaseous) I have examined the patient and the H&P has been reviewed. There are no clinical changes since date of exam.
--- NOTE | 2024-04-14 08:52 | OP.EGD_ITS ---
Patient Name: Tyler Olivares Procedure Date: 04/14/2024 8:34 AM Date of : 1950 Age: 73 Procedure: Upper GI endoscopy Indications: Functional Dyspepsia Providers: Phil Goyal DO Referring MD: Roxy Vanessa Medicines: Monitored Anesthesia Care Patient Profile: This is a 73 year old male. Refer to note in patient chart for documentation of history and physical. Patient has symptoms of chronic abdominal cramping and chronic abdominal distention. The symptoms first began 2019. Complications: No immediate complications. Procedure: Pre-Anesthesia Assessment: - Prior to the procedure, a History and Physical was performed, and patient medications and allergies were reviewed. The patient is competent. The risks and benefits of the procedure and the sedation options and risks were discussed with the patient. All questions were answered and informed consent was obtained. Patient identification and proposed procedure were verified by the physician in the pre-procedure area. Mental Status Examination: alert and oriented. Airway Examination: normal oropharyngeal airway and neck mobility. Respiratory Examination: clear to auscultation. CV Examination: normal. Prophylactic Antibiotics: The patient does not require prophylactic antibiotics. Prior Anticoagulants: The patient has taken no anticoagulant or antiplatelet agents. ASA Grade Assessment: II - A patient with mild systemic disease. After reviewing the risks and benefits, the patient was deemed in satisfactory condition to undergo the procedure. The anesthesia plan was to use monitored anesthesia care (MAC). Immediately prior to administration of medications, the patient was re-assessed for adequacy to receive sedatives. The heart rate, respiratory rate, oxygen saturations, blood pressure, adequacy of pulmonary ventilation, and response to care were monitored throughout the procedure. The physical status of the patient was re-assessed after the procedure. After obtaining informed consent, the endoscope was passed under direct vision. Throughout the procedure, the patient's blood pressure, pulse, and oxygen saturations were monitored continuously. The gastroscope was introduced through the mouth, and advanced to the second part of duodenum. The upper GI endoscopy was accomplished without difficulty. The patient tolerated the procedure well. Scope In: 8:40:38 AM Scope Out: 8:45:13 AM Total Procedure Duration Time 0 hours 4 minutes 35 seconds Findings: Abnormal motility was noted in the lower third of the esophagus. The cricopharyngeus was normal. There are extra peristaltic waves in the esophageal body. The distal esophagus/lower esophageal sphincter is spastic, but gives up passage to the endoscope. Secondary peristaltic waves are noted. The Z-line was irregular and was found 42 cm from the incisors. Biopsies were taken with a cold forceps for histology. Verification of patient identification for the specimen was done. Estimated blood loss was minimal. A small hiatal hernia was present. A few localized 5 mm erosions with no stigmata of recent bleeding were found in the gastric body. Biopsies were taken with a cold forceps for histology. Verification of patient identification for the specimen was done. Estimated blood loss was minimal. Few non-bleeding superficial duodenal ulcers with no stigmata of bleeding were found in the duodenal bulb. The largest lesion was 2 mm in largest dimension. Biopsies were taken with a cold forceps for histology. Verification of patient identification for the specimen was done. Estimated blood loss was minimal. Impression: - Abnormal esophageal motility, suspicious for presbyesophagus. - Z-line irregular, 42 cm from the incisors. Biopsied. - Small hiatal hernia. - Erosive gastropathy with no stigmata of recent bleeding. Biopsied. - Non-bleeding duodenal ulcers with no stigmata of bleeding. Biopsied. Recommendation: - Discharge patient to home. - Resume previous diet. - Continue present medications. - Await pathology results. Procedure Code(s): --- Professional --- 76119, Esophagogastroduodenoscopy, flexible, transoral; with biopsy, single or multiple CPT copyright 2021 [employer]. All rights reserved. The codes documented in this report are preliminary and upon jacquard loom card changer review may be revised to meet current compliance requirements. Phil Goayl DO 04/14/2024 8:52:02 AM This report has been signed electronically. Number of Addenda: 0 Note Initiated On: 04/14/2024 8:34 AM
--- NOTE | 2024-04-14 08:52 | OP.CCLET_ITS ---
04/14/2024 Roxy Vanessa [address] [place] [address] Re : Upper GI endoscopy procedure for Tyler Elise Dear Dr. Vanessa This procedure was performed on Sunday, April 14, 2024. My impressions and recommendations are as follows: Impressions : - Abnormal esophageal motility, suspicious for presbyesophagus. - Z-line irregular, 42 cm from the incisors. Biopsied. - Small hiatal hernia. - Erosive gastropathy with no stigmata of recent bleeding. Biopsied. - Non-bleeding duodenal ulcers with no stigmata of bleeding. Biopsied. Recommendations : - Discharge patient to home. - Resume previous diet. - Continue present medications. - Await pathology results. My findings are described in the full procedure note, which is enclosed. If I can be of further assistance, please feel free to contact me at . Sincerely, Phil Goyal, 04/14/2024 8:52:02 AM This report has been signed electronically.
== END 2024-04-14 09:48 | disposition home or self-care (01) ==
LOC: EN 06:53 → AC 06:53
PROVIDERS: PCP Internal Medicine Infectious Disease; Referring Provider Internal Medicine Infectious Disease; Visit Provider Internal Medicine Gastroenterology
PROC: 0DJ08ZZ Inspection of Upper Intestinal Tract, Via Natural or Artificial Opening Endoscopic (ICD-10-PCS; CPT 43235; principal; 2024-04-14 07:55)
DX: Z12.11 Encounter for screening for malignant neoplasm of colon (principal); K44.9 Diaphragmatic hernia without obstruction or gangrene; R14.0 Abdominal distension (gaseous); K26.9 Duodenal ulcer, unspecified as acute or chronic, without hemorrhage or perforation; F17.200 Nicotine dependence, unspecified, uncomplicated; K57.30 Diverticulosis of large intestine without perforation or abscess without bleeding; Z87.19 Personal history of other diseases of the digestive system; K22.89 Other specified disease of esophagus; K22.70 Barrett's esophagus without dysplasia; K29.70 Gastritis, unspecified, without bleeding
CPT/HCPCS: 43239; 88305; 88312; 88341; 88342; 93005; J7120; J2405